=== PATIENT | female | born 1990 | race Caucasian/White ===

== ENCOUNTER 2025-03-01 22:33 | Emergency (ER) | payer OTHER ==
[~2025-03-01] VITALS: Ht 180.3 cm; Wt 105.8 kg
--- NOTE | 2025-03-01 22:55 | ELECTROCARDIOGRAPH REPORT ---
[facility] Test Date: 2025-03-01 Test Time: 22:54:27 Pat Name: MOMO MAGAÑA Department: [facility]- Patient ID: [id number] Room: Gender: F [employer]: : 1990 Requested By: CHUY HARO Order Number: [id number] Reading MD: Dr. YOLA Bo Measurements Intervals [place] Rate: 93 P: 74 TN: 163 QRS: 114 QRSD: 99 T: 26 QT: 351 QTc: 437 Interpretive Statements Sinus rhythm Right axis deviation Low voltage, precordial leads Borderline T abnormalities, anterior leads Baseline wander in lead(s) III Electronically Signed On 03-04-2025 18:08:[address] YOLA Bo Please click the below link to view image of tracing.
[2025-03-01 23:09] LABS: MEAN PLATELET VOLUME 7.1 FL (7.4-10.4); RED CELL DISTRIBUTION WIDTH 12.7 % (11.5-14.5)
[2025-03-01 23:32] LABS: CREATININE 0.81 MG/DL (0.40-0.90); PRO BRAIN NATRIURETIC PEPTIDE < 30 PG/ML (0-125); TOTAL CARBON DIOXIDE 26.9 MMOL/L (24-32); eCRCL 109 ML/MIN; eGFR 81 ML/MIN
--- NOTE | 2025-03-01 23:49 | RADIOLOGY REPORT ---
CHEST RADIOGRAPH Indication: CP Technique: 1 view Comparison: None FINDINGS: Lines and Tubes: None. Lungs/Pleura: No focal consolidation, pleural effusion or pneumothorax. Cardiomediastinum: Unremarkable. Other: No acute osseous abnormality. IMPRESSION: 1. No acute cardiopulmonary abnormality.
[2025-03-02] MEDS ORDERED: DEXAMETHASONE 6 MG TABLET PO SCH ×2 (01:35→08:00)
[2025-03-02] MEDS: normal saline 1000ml 1,000 ML IV ONE (01:41)
[2025-03-02] MEDS: DEXAMETHASONE 6 MG TABLET PO ONE (01:41)
--- NOTE | 2025-03-02 02:24 | Physician Documentation ---
History of Present Illness ~ Chief Complaint: Shortness of Breath Stated Complaint: COLD SYMPTOMS/SOB Time Seen by MD: 02:17 Mode of Arrival: Ambulatory HPI Patient presents to the emergency room with 11 day history of URI symptoms. No fevers. [place] her symptoms began. She did see her doctor who prescribed her antibiotics and told her to start him if things worsened however she has not. Medication Reconciliation Allergies: Coded Allergies: No Known Allergies (Unverified , 03/01/25) Review of Systems ROS All review of systems negative except as per HPI Physical Exam Vital Signs: Temperature: 97.9, Source: Oral, Heart Rate: 90, Respiratory Rate: 14, BP: 119/84, Pulse Oximetry: 95, Weight: 105.820 Oxygen Flow Rate: 0 Physical Exam General: Patient is awake, alert, oriented x4 in no acute distress and well appearing.~ Head: Normocephalic and atraumatic. Eyes: Conjunctival normal. EOMI. PERRL. ENT: Mucous membranes moist. Neck: Supple, trachea is midline. Chest: Clear to auscultation bilaterally without rales, rhonchi, or wheezes. There is no accessory muscle use or retractions. Cardiac: RRR without murmurs, gallops, or rubs. Progress Results/Orders Results/Orders Orders - EL RODRIGUEZ MD Chest,Single View (03/01/25 23:19) Monitor (03/01/25 22:50) Saline Lock (03/01/25 22:50) Oxygen (03/01/25 22:50) Hs Troponin I W Calculations (03/02/25 00:50) Hs Troponin I W Calculations (03/02/25 01:50) Completed Orders - EL RODRIGUEZ MD Chest,Single View (03/01/25 23:19) Cbc/Diff (03/01/25 22:50) BMP (03/01/25 22:50) PBNP (03/01/25 22:50) Electrocardiogram (03/01/25 22:50) Hs Troponin I W Calculations (03/01/25 22:50) Medications Received in ER Medications (Trade) Dose Ordered Sig/Nneka Route PRN Reason Start Time Stop Time Status Last Admin Dose Admin Sodium Chloride 1,000 ml @ 1,000 mls/hr ONCE ONCE IV 03/02/25 01:15 03/02/25 02:14 DC 03/02/25 01:41 1,000 MLS/HR (Dexamethasone 6mg tablet) 10 mg ONCE ONCE PO 03/02/25 01:35 03/02/25 01:38 DC 03/02/25 01:41 10 MG Vital Signs 03/01/25 03/02/25 03/02/25 22:39 00:35 00:40 Temp 97.9 97.9 Pulse 82 90 Resp 20 14 B/P (MAP) 129/85 119/84 (96) Pulse Ox 96 95 O2 Flow Rate 0 0 Laboratory Tests Test 03/01/25 22:58 White Blood Count 9.0 Red Blood Count 4.49 Hemoglobin 13.5 Hematocrit 39.5 Mean Corpuscular Volume 88.1 Mean Corpuscular Hemoglobin 30.0 Mean Corpuscular Hemoglobin Concent 34.1 Red Cell Distribution Width 12.7 Platelet Count 368 Mean Platelet Volume 7.1 L Neutrophils (%) (Auto) 55.5 Lymphocytes (%) (Auto) 33.3 Monocytes (%) (Auto) 7.2 Eosinophils (%) (Auto) 3.5 Basophils (%) (Auto) 0.5 Neutrophils # (Auto) 5.0 Lymphocytes # (Auto) 3.0 Monocytes # (Auto) 0.6 Eosinophils # (Auto) 0.3 Basophils # (Auto) 0.0 CBC Comment Sodium Level 141 Potassium Level 3.5 Chloride Level 104 Carbon Dioxide Level 26.9 Anion Gap 10 Blood Urea Nitrogen 6 L Creatinine 0.81 Estimated GFR/1.73 m2 81 BUN/Creatinine Ratio 7.4 L Glucose Level 101 Calcium Level 8.8 Troponin I High Sensitivity 4 Pro-B-Type Natriuretic Peptide < 30 Albumin 4.1 Chemistry Comments Medical Decision Making Additional information obtaine: N/A Findings Patient presents to the emergency room with cough and sore throat as per HPI. Differentials include but are not limited to pneumonia, strep throat, viral syndrome, bronchitis. Patient's vitals are reassuring she is nontoxic appearing. She already has a prescription for antibiotics. I will add an inhaler and Tessalon Perles to her regimen with ER precautions discussed. Heart Score: 1 Differential Dx:Considerations: Include: anxiety, asthma, bronchitis, cardiogenic shock, CHF, COPD, dysrhythmia, hypertension, accelerated, hypertension, essential, hypertension, malignant, hyperventilation, hyponatremia, myocardial infarction, panic attack, pneumonia, pneumonitis, pneumothorax, PSVT, pulmonary embolism, respiratory distress, respiratory failure, sinusitis, upper resp. infection, other Departure Disposition: HOME / SELF CARE / HOMELESS Impression: Primary Impression: Acute upper respiratory infection Condition: Stable Discharge Instructions: Upper Respiratory Infection, Adult Referrals: NO PRIMARY CARE PROVIDER (PCP) Prescriptions Albuterol Sulfate (Ventolin Hfa) 90 Mcg Hfa.aer.ad 2 PUFFS IH 5XD, #1 EACH Prov: EL RODRIGUEZ MD 03/02/25 Benzonatate* (Benzonatate*) 100 Mg Capsule 1 CAP PO Q8H for cough for 10 Days, #30 CAP Prov: EL RODRIGUEZ MD 03/02/25 Signature Scribe Signature: No scribe Attestation: The note accurately reflects work and decisions made by me.El Rodriguez MD 03/02/25 02:27 EL RODRIGUEZ MD Mar 02, 2025 02:24
[2025-03-02] MEDS ORDERED: ALBU18HF2 IH (02:27)
[2025-03-02] MEDS ORDERED: BENZ-38 PO (02:27)
[2025-03-02 02:41] VITALS: BP 121/72; PULSE 70; RESP 18; TEMP 98.6; O2SAT 99
== END 2025-03-02 02:46 | disposition home or self-care (01) ==
LOC: ER 22:34
DX: J06.9 Acute upper respiratory infection, unspecified (principal)
CPT/HCPCS: 36415; 71045; 80048; 83880; 84484; 85025; 93005; 96360; 99285; J7030; J8540